=== PATIENT | female | born 1960 | race Caucasian/White ===

== ENCOUNTER 2020-05-10 17:42 | Observation (INO) | payer BC, OTHER ==
[~2020-05-10] VITALS: Ht 152.4 cm; Wt 54.9 kg
[~2020-05-10 17:42] MED LIST: AMBIEN5 MG PO; CELEBREX200 MG PO; CIPRO500 MG PO; DEXILANT60 MG PO; FLAGYL250 MG PO; LIPITOR20 MG PO; LIPOFEN150 MG PO; METOPROLOL TART25 MG PO; PREMARIN0.625 MG PO; VITAMIN D10000 UNIT PO
--- OUTSIDE RECORDS SUMMARY | 2020-05-10 17:45 | XMS REPORT | Continuity of Care Document ---
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 Role Phone Down Information Indigoz Unavailable Un available Problems Problem Status Onset Date Classification Date Reported Comments Source NEW PT CONSULT - GASTROPARESIS Active 02/02/2019 [facility] Inflammatory arthritis Active Problem 08/22/2018 Elan Haines TALHA positive Active Problem 08/22/2018 Elan Haines Hand pain Active Diagnosis 06/25/2018 Elan Haines Wrist pain, right Active Diagnosis 06/25/2018 Elan Haines Hand pain, right Active Diagnosis 06/25/2018 Elan Haines Shoulder pain, right Active Diagnosis 06/25/2018 Elan Haines Wrist pain, left Active Diagnosis 06/25/2018 Elan Haines Shoulder pain, left Active Diagnosis 06/25/2018 Elan Haines Foot pain, right Active Diagnosis 06/25/2018 Elan Haines Knee pain, right Active Diagnosis 06/25/2018 Elan Haines Hip pain, right Active Diagnosis 06/25/2018 Elan Haines Foot pain, left Active Diagnosis 06/25/2018 Elan Haines Hip pain, left Active Diagnosis 06/25/2018 Elan Haines Knee pain, left Active Diagnosis 06/25/2018 Elan Haines Hand pain, left Active Diagnosis 06/25/2018 Elan Haines Family history of ischemic heart disease Active Diagnosis 08/16/2015 Mohamed O Jeroudi Chest pain Active Problem 08/16/2015 Mohamed O Jeroudi Hyperglyceridemia Active Problem 08/16/2015 Mohamed O Jeroudi Heart palpitations Active Problem 08/16/2015 Mohamed O Jeroudi Medications Medication Details Route Status Patient Instructions Ordering Provider Order Date Source Estradiol 0.5 MG Oral Tablet [Estrace] 0.5 mg = 1 tab, PO, Daily, # 30 tab, 0 Refill(s) Active 03/16/2019 [facility] nt gabapentin 300 MG Oral Capsule 300 mg = 1 cap, PO, TID, # 270 cap, 0 Refill(s) Active 03/16/2019 [facility] dexlansoprazole 60 MG Enteric Coated Capsule [Dexilant ] 60 mg = 1 cap, PO, Daily, # 30 cap, 1 Refill(s) Active 03/16/2019 [facility] nter zolpidem 10 mg oral tablet 10 mg = 1 tab, PO, Bedtime, # 14 tab, 0 Refill(s) Active 03/16/2019 [facility] Fenofibrate PO, Daily, 0 Refil l(s) Active 03/16/2019 [facility] rifaMPIN 300 mg oral capsule 6 00 mg = 2 cap, PO, Daily, # 28 cap, 0 Refill(s) Active 03/16/2019 [facility] celecoxib 100 mg oral capsule 100 mg = 1 cap, PO, BID, # 180 cap, 0 Refill(s) Active 03/16/2019 [facility] minocycline 100 mg oral capsule 100 mg = 1 cap, PO, Q12H, # 60 cap, 0 Refill(s) Active 03/16/2019 [facility] nter Probiotic Formula oral capsule 1 cap, PO, Daily, 0 Refill(s) Active 03/16/2019 [facility] Hydroxychloroquine Sulfate 1 t ablet with food or milk Orally Active 200 MG Orally bid wm Gregg 06/22/2018 Elan Haines Fenofibrate 1 capsule with food Orally Active 150 MG Orally Once a day Gregg Elan Haines Celecoxib 1 capsule with food Orally Active 200 MG Orally Once a day Gregg Elan Haines Dexilant 1 capsule Orally Active 60 MG Orally Once a day Gregg Hieu Haines Progesterone 1 capsule at bedt samantha Orally Active 200 MG Orally Once a day Gregg Elan Haines Balance D as directed NA Active Yous af Elan Haines Ambien CR 1 tablet at bedtime as needed Orally Active 12.5 MG Orally Once a day Gregg Elan Haines DHEA 50 as directed Orally Active 50 MG Orally Gregg Hieu Haines CardioDaily as directed Orally Active - Orally Gregg Hieu Haines Celebrex 1 capsule Orally Active 200 MG Orally Once a da y Isidro Felix Metoprolol Tartrate 1/2 half t ablet Orally Active 25 MG Orally Twice a day Isidro Felix Premarin 1 tablet Orally Active 0.625 MG Orally Once a day Jerjennifer Larry Deejennifer Vitamin D 1 tablet Orally Active 1000 UNIT Orally Once a day Jerjennifer Larry Alatorre Isidro Lipofen 1 capsule Orally Active 150 MG Orally once a da y Jerjennifer Larry Celi Felix Dexilant 1 capsule Orally Active 60 MG Orally Once a day Jertimmyarianna Larry Celi Felix Allergies, Adverse Reactions, Alerts Substance Category Reaction Severity Reaction type Status Date Reported Comments Source PredniSONE Adverse Reaction Info Not Available Adverse Reactio n Active 08/15/2014 Teeamed Celi Deejennifer latex Adverse Reaction Info Not Available Adverse Reaction Active 06/22/2018 Elan Haines steroids Adverse Reaction Info Not Available Adverse Reaction Active 06/22/2018 Elan Leivaer Latex Assertion Allergy to substance Active [facility] predniSONE Assertion Drug allergy Active [facility] Immunizations No Data Provided for This Section Results No Data Provided for This Section Pathology Reports No Data Provided for This Section Diagnostic Reports No Data Provided for This Section Consultation Notes No Data Provided for This Section Discharge Summaries No Data Provided for This Section History and Physicals No Data Provided for This Section Vital Signs Vital Sign Value Date Comments Source Height 152.4 cm 03/16/2019 [facility] Weight 54.602 03/16/2019 [facility] BMI Calculated 23.51 03/16/2019 [facility] Systolic (mm Hg) 121 03/16/2019 [facility] Diastolic (mm Hg) 71 03/16/2019 [facility] Heart Rate 67 03/16/2019 [facility] Weight 134 06/22/2018 Elan Haines Height 59.5 06/22/2018 Elan Haines Temperature Oral (F) 97.6 F 06/22/2018 Elan Haines Heart Rate 64 06/22/2018 Elan Haines Diastolic (mm Hg) 78 06/22/2018 Elan Haines Systolic (mm Hg) 104 06/22/2018 Elan Haines Weight 142 08/15/2014 Larry Felix Height 60 1 10/15/2013 Larry Yehdi Temperature Oral (F) 96.6 F 08/15/2014 Larry Felix Heart Rate 69 08/15/2014 Larry Felix Diastolic (mm Hg) 65 08/15/2014 Larry Felix Systolic (mm Hg) 115 08/15/2014 Larry Felix Encounters Location Location Details Encounter Type Encounter Number Reason For Visit Attending Provider ADM Date DC Date Status Source Larry Felix MD PA Unknown [id number] 08/15/20 14 08/15/2014 Larry Felix [facility] [id number] Robbin Milner 03/16/2019 03/17/2019 [facility] Procedures No Data Provided for This Section Assessment and Plan No Data Provided for This Section Plan of Care No Data Provided for This Section Social History Social History Date Source Social History TypeResponse Alcohol Current, Type Wine. Smoking Status Never smoker; Previous treatment: None; Ready to change: No; Concerns about tobacco use in household: No; Exposure to Tobacco Smoke None; Cigarette Smoking Last 365 Days No; Reg Smoking Cessation Counseling No entered on: 03/16/19 03/16/2019 [facility] Social History ElementQualifiersDate Rep orted Smoking . Status Never Smoker Aug 14, 2015 Alcohol Use No. Aug 14, 2015 Alcohol Screening: No. Aug 14, 2015 Marital Status: . Aug 14, 2015 Do you drink alcohol? No. 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 08/14/2015 Larry Felix Family History Value Date S ource QualifierDescriptionCommentDate Reported Maternal Grandmother Comment not available Aug 14, 2015 Paternal Grandmother Comment not available Aug 14, 2015 Siblings Comment not available Aug 14, 2015 Maternal Grandfather Comment not available Aug 14, 2015 Children Comment not available Aug 14, 2015 Father CHF Aug 14, 2015 Paternal Grandfather Comment not available Aug 14, 2015 Mother alive Possible Ablation Aug 14, 2015 Other: Comment not available Aug 14, 2015 08/16/2015 Larry Felix Advance Directives No Data Provided for This Section Functional Status No Data Provided for This Section
--- OUTSIDE RECORDS SUMMARY | 2020-05-10 17:45 | XMS REPORT ---
Author Author CAIT Haines Organization [employer] Address Unknown Phone Unavailable Care Team Providers Care Tire Service Technician Name Role Phone Matteo Haines CP Unavailable Allergies No Known Allergies Problems Problem Type Condition Code Onset Dates Condition Statu s Problem Inflammatory arthritis M19.90 Activ e Problem TALHA positive R76.8 Active Medications No Known Medications Results No Known Results Summary Purpose [employer] Submission
--- OUTSIDE RECORDS SUMMARY | 2020-05-10 17:45 | XMS REPORT | Summary of Care ---
Author Author [facility] Organization [facility] Address Unknown Phone Unavailable Encounter MARY Castle(LITO) [id number] Date(s): 03/16/19 - 03/16/19 [facility] [address] [place] [address] [phone] Discharge Disposition: Home or Self Care Attending Physician: Robbin Milner MD Referring Physician: Robbin Milner MD Vital Signs Most recent to 1 oldest [Reference Range]: Height 152.4 cm (03/16/19 2:12 PM) Blood Pressure 121/71 mmHg [90-140/60-90 mmHg] (03/16/19 2:12 PM) Peripheral Pulse 67 bpm Rate [60-100 bpm] (03/16/19 2:12 PM) Weight 54.602 kg (03/16/19 2:12 PM) Body Mass Index 23.51 m2 (03/16/19 2:12 PM) Problem List No data available for this section Allergies, Adverse Reactions, Alerts Substance Reaction Severity Status predniSONE Active Latex Active Medications celecoxib 100 mg oral capsule 100 mg = 1 cap, PO, BID, # 180 cap, 0 Refill(s) Start Date: 03/16/19 Status: Ordered Dexilant 60 mg oral delayed release capsule 60 mg = 1 cap, PO, Daily, # 30 cap, 1 Refill(s) Start Date: 03/16/19 Status: Ordered Estrace 0.5 mg oral tablet 0.5 mg = 1 tab, PO, Daily, # 30 tab, 0 Refill(s) Start Date: 03/16/19 Status: Ordered fenofibrate PO, Daily, 0 Refill(s) Start Date: 03/16/19 Status: Ordered gabapentin 300 mg oral capsule 300 mg = 1 cap, PO, TID, # 270 cap, 0 Refill(s) Start Date: 03/16/19 Status: Ordered minocycline 100 mg oral capsule 100 mg = 1 cap, PO, Q12H, # 60 cap, 0 Refill(s) Start Date: 03/16/19 Stop Date: 04/15/19 Status: Ordered Probiotic Formula oral capsule 1 cap, PO, Daily, 0 Refill(s) Start Date: 03/16/19 Status: Ordered rifaMPIN 300 mg oral capsule 600 mg = 2 cap, PO, Daily, # 28 cap, 0 Refill(s) Start Date: 03/16/19 Stop Date: 03/30/19 Status: Ordered zolpidem 10 mg oral tablet 10 mg = 1 tab, PO, Bedtime, # 14 tab, 0 Refill(s) Start Date: 03/16/19 Stop Date: 03/30/19 Status: Ordered Results No data available for this section Immunizations No data available for this section Procedures No data available for this section Social History Social History Type Response Alcohol Current, Type Wine. Smoking Status Never smoker; Previous baylee tment: None; Ready to change: No; Concerns about tobacco use in household: No; Exposure to Tobacco Smoke None; Cigarette Smoking Last 365 Days No; Reg Smoking C essation Counseling No entered on: 03/16/19 Assessment and Plan No data available for this section
--- OUTSIDE RECORDS SUMMARY | 2020-05-10 17:45 | XMS REPORT ---
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 Name Role Phone Larry Felix CP Unavailable Allergies, Adverse Reactions, Alerts Substance Reaction Event Type Latex Info Not Available Drug Allergy PredniSONE Info Not Available Drug Allergy Encounters Encounter Location Date Unknown Larry Felix MD PA Aug 15, 2014 Problems Problem Type Condition ICD-9 Code Onset Dates Condition Statu s Assessment Family history of ischemic heart disease V17.3 Active Problem Chest pain 786.50 Active Problem Hyperglyceridemia 272.1 Active Problem Heart palpitations 785.1 Active Assessment Chest pain 786.50 Active Assessment Hyperglyceridemia 272.1 Active Problem Family history of ischemic heart disease V17.3 Active Assessment Heart palpitations 785.1 Active Medications Medication Code System Code Instructions Start Date End Date Status Dosage Celebrex [facility] [address]-10 200 MG Orally Once a day Active [address] [facility] [address]-94 25 MG Orally Twice a day Active 1/[address] [facility] [address]-83 0.625 MG Orally Once a day Active [address] [facility] [address]-76 1000 UNIT Orally Once a day Active [address] [facility] [address]-68 150 MG Orally once a day Active [address] [facility] [address]-06 60 MG Orally Once a day Active 1 capsule Social History Social History Element Qualifiers Date Reported Smoking . Status Never Smoker Aug 14, 2015 Alcohol Use No. Aug 14, 2015 Alcohol Screening: No. Aug 14, 2015 Marital Status: . Aug 14, 2015 Do you drink alcohol? No. 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 Family history Qualifier Description Comment Date Reported Maternal Grandmother Comment not available Jul 242014 Paternal Grandmother Comment not available Jul 242014 Siblings Comment not available Nov 23, 20 15 Maternal Grandfather Comment not available Jul 242014 Children Comment not available Aug 14 Father CHF Aug 14, 2015 Paternal Grandfather Comment not available Jul 242014 Mother alive Possible Ablation Aug 14, 2015 Other: Comment not available Aug 14 15 Vital Signs Date/Time: Aug 15, 2014 Weight 142 lbs Height 60 in Temperature 96.6 F Cardiac Monitoring Heart Rate 69 /min Blood Pressure Diastolic 65 mm Hg Blood Pressure Systolic 115 mm Hg Summary Purpose [employer] Submission
--- OUTSIDE RECORDS SUMMARY | 2020-05-10 17:45 | XMS REPORT ---
Author [facility] [employer] Address Unknown Phone Unavailable Care Team Providers Care Biological Photographer Name Role Phone Jose Escobedo CP Unavailable Allergies, Adverse Reactions, Alerts Substance Reaction Event Type latex Info Not Available Non Drug Allergy steroids Info Not Available Non Drug Allergy Problems Problem Type Condition Code Onset Dates Condition Statu s Assessment Hand pain M79.643 Active Assessment Wrist pain, right M25.531 Active Assessment Hand pain, right M79.641 Active Problem Inflammatory arthritis M19.90 Activ e Assessment Inflammatory arthritis M19.90 Activ e Problem TALHA positive R76.8 Active Assessment Shoulder pain, right M25.511 Active Assessment Wrist pain, left M25.532 Active Assessment TALHA positive R76.8 Active Assessment Shoulder pain, left M25.512 Active Assessment Foot pain, right M79.671 Active Assessment Knee pain, right M25.561 Active Assessment Hip pain, right M25.551 Active Assessment Foot pain, left M79.672 Active Assessment Hip pain, left M25.552 Active Assessment Knee pain, left M25.562 Active Assessment Hand pain, left M79.642 Active Medications Medication Code System Code Instructions Start Date End Date Status Dosage Fenofibrate [facility] 39453946571 150 MG Orally Once a day Active 1 capsule with food Celecoxib ND 44929143809 200 MG Orally Once a day A ctive 1 capsule with food Dexilant [facility] 81934407002 60 MG Orally Once a day Act conchis 1 capsule Progesterone [facility] [address]-35 200 MG Orally Once a day Active 1 capsule at bedtime Balance D NDC 0 Active as directed Ambien CR ND 38442875732 12.5 MG Orally Once a day Active 1 tablet at bedtime as needed DHEA 50 ND 91415869108 50 MG Orally Active as dir ected Hydroxychloroquine Sulfate ND 75665368917 200 MG Orally bid w m Jun 22, 2018 Oct 20, 2018 Active 1 tablet with food or milk CardioDaily NDC 0 - Orally Active as directe d Vital Signs Date/Time: Jun 22, 2018 BMI 26.61 Index Weight 134 lbs Height 59.5 in Temperature 97.6 F Cardiac Monitoring Heart Rate 64 /min Blood Pressure Diastolic 78 mm Hg Blood Pressure Systolic 104 mm Hg Results No Known Results Summary Purpose [employer] Submission
--- OUTSIDE RECORDS SUMMARY | 2020-05-10 17:45 | XMS REPORT | Continuity of Care Document ---
Author Author [facility] t Organization [facility] Address 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 Name Role Phone Vicente RIVERA MD PCP [facility] Attphys Payers Payer Name Policy Type Policy Number Effective Date Expiration Date kimberly [facility] [id number] 2017 00:00:00 [facility] Problems Condition Name Condition Details Condition Category Status Onset Date Resolution Date Last Treatment Date Treating Clinician Comments Source NEW PT CONSULT - GASTROPARESIS NEW PT CONSULT - GASTROPARESIS Active 02/02/2019 [facility] Diagnosis Activ e 2019-02-02 00:00:00 2019-03-16 14:14:00 Raza Phipps Anemia Anemia Disease Active 2017-04-02 00:00:00 Kleber King Diverticulitis of colon Diverticulitis of colon Disease Active 2017-03-28 00:00:[address] Chest pain Chest pain Problem Active 2014-07-13 00:00:00 [facility] Diverticulitis of intestine Diverticulitis Problem Active [facility] Failure of outpatient treatment Failure of outpatient treatment Pro blem Active [facility] Inflammatory arthritis Infl ammatory arthritis Active Problem 08/22/2018 Elan Haines Problem Active 2018-08-22 03 :45:05 [facility] TALHA positive TALHA positive Active Problem 08/22/2018 Elan Haines Problem Active 2018-08-22 03:45:05 [facility] Hand pain Hand pain Active Diagnosis 06/25/2018 Elan Haines Diagnosis Active 2018-06-25 02:46:43 [facility] Wrist pain, right Wris t pain, right Active Diagnosis 06/25/2018 Elan Haines Diagnosis Active 2018-06-25 02:46:43 [facility] Hand pain, right Hand pain, right Active Diagnosis 06/25/2018 Elan Haines Diagnosis Active 2018-06-25 02:46:43 [facility] Shoulder pain, right Shou lder pain, right Active Diagnosis 06/25/2018 Elan Haines Diagnosis Active 2018-06-25 02:46:43 [facility] Wrist pain, left Wris t pain, left Active Diagnosis 06/25/2018 Elan Haines Diagnosis Active 2018-06-25 02:46:43 [facility] Shoulder pain, left Shou lder pain, left Active Diagnosis 06/25/2018 Elan Haines Diagnosis Active 2018-06-25 02:46:43 [facility] Foot pain, right Foot pain, right Active Diagnosis 06/25/2018 Elan Haines Diagnosis Active 2018-06-25 02:46:43 [facility] Knee pain, right Knee pain, right Active Diagnosis 06/25/2018 Elan Haines Diagnosis Active 2018-06-25 02:46:43 [facility] Hip pain, right Hip pain, right Active Diagnosis 06/25/2018 Elan Haines Diagnosis Active 2018-06-25 02:46:43 [facility] Foot pain, left Foot pain, left Active Diagnosis 06/25/2018 Elan Haines Diagnosis Active 2018-06-25 02:46:43 [facility] Hip pain, left Hip pain, left Active Diagnosis 06/25/2018 Elan Haines Diagnosis Active 2018-06-25 02:46:43 [facility] Knee pain, left Knee pain, left Active Diagnosis 06/25/2018 Elan Haines Diagnosis Active 2018-06-25 02:46:43 [facility] Hand pain, left Hand pain, left Active Diagnosis 06/25/2018 Elan Haines Diagnosis Active 2018-06-25 02:46:43 [facility] Family history of ischemic heart disease Family history of ischemic heart disease Active Diagnosis 08/16/2015 Larry Felix Diagnosis Active 2015-08-16 03:49:46 Usman Phipps Chest pain Ches t pain Active Problem 08/16/2015 Larry Felix Problem Active 2015-08-16 03:49:46 Ginger Phipps Hyperglyceridemia Hype rglyceridemia Active Problem 08/16/2015 Larry Felix Problem Active 2015-08-16 03:49:46 Ginger Phipps Heart palpitations Hear t palpitations Active Problem 08/16/2015 Larry Felix Problem Active 2015-08-16 03:49:46 Ginger Phipps Allergies, Adverse Reactions, Alerts Allergy Name Allergy Type Status Severity Reaction(s) Onset Date Inacti ve Date Treating Clinician Comments Source Latex Allergy to Substance Active 2019-09-22 00:00:00 [facility] steroids steroids Active Info Not Available 2018-06-22 00:00:00 Ginger Phipps Latex Propensity to adverse reactions to drug Active 2017-02-10 00:00:00 Kleber King Prednisone Propensity to adverse reactions to drug Active Hypertension 2017-02-10 00:00:00 rash [place] [facility] PredniSONE PredniSONE Active Info Not Available 2014-08-15 00:00:0 0 Ginger Phipps latex DA Active SV 2012-06-25 00:00:00 [facility] STEROIDS DA Active MO 2012-06-25 00:00:00 [facility] Latex Latex Active [facility] jamal predniSONE predniSONE Active Me [facility] Family History Family Member Diagnosis Comments Start Date Stop Date Source Natural father Heart disease Kleber King Natural mother COPD [facility] thodist Unknown Family Member Family History 2015-08-16 03:49:46 2 03:49:46 Ginger Phipps Social History Social Habit Start Date Stop Date Quantity Comments Source Sex Assigned At Kaur raines Fernando Social History 2019-03-16 19:17:50 2019-03-16 19:17:50 Ginger Phipps Alcohol intake 2018-04-01 00:00:00 2018-04-01 00:00:00 Current non-drinker of alcohol (finding) Kleber King Smoking 2015-08-14 00:00:00 2015-08-14 00:00:00 Ginger Phipps Smoking Status Start Date Stop Date Source Never smoker Kleber Mais t Medications Ordered Medication Name Filled Medication Name Start Date Stop Da te Current Medication? Ordering Clinician Indication Dosage Frequency Signature (SIG) Comments Components Source Estradiol 0.5 MG Oral Tablet [Estrace] 2019-03-16 19:18:00 Yes 0.5 mg = 1 tab, PO, Daily, # 30 tab, 0 [facility] Oral Capsule 2019-03-16 19:18:00 Yes 300 mg = 1 cap, PO, TID, # 270 cap, 0 Refill(s) [facility] [place] [place] dexlansoprazole 60 MG Enteric Coated Capsule [Dexilant] 2019-03-16 19:18:00 Yes 60 mg = 1 cap, PO, Daily, # 30 cap, 1 Re fill(s) [facility] zolpidem 10 mg oral tablet 2019-03-16 19:18:00 Yes 10 mg = 1 tab, PO, Bedtime, # 14 tab, 0 Refill(s) Usman Phipps Fenofibrate 2019-03-16 19:18:00 Yes PO, Toney y, 0 Refill(s) [facility] rifaMPIN 300 mg oral capsule 2019-03-16 19:18:00 Yes 600 mg = 2 cap, PO, Daily, # 28 cap, 0 Refill(s) Andrea Ragland celecoxib 100 mg oral capsule 2019-03-16 19:18:00 Yes 100 mg = 1 cap, PO, BID, # 180 cap, 0 Refill(s) [facility] [place] minocycline 100 mg oral capsule 2019-03-16 19:18:00 Yes 100 mg = 1 cap, PO, Q12H, # 60 cap, 0 Refill(s) [facility] Probiotic Formula oral capsule 2019-03-16 19:18:00 Yes 1 cap, PO, Daily, 0 Refill(s) [facility] Fenofibrate 2018-06-25 02:46:43 Yes Wajeeha Gregg 1 capsule with food [facility] Celecoxib 2018-06-25 02:46:43 Yes Wajeeha Gregg 1 capsule with food [facility] Dexilant 2018-06-25 02:46:43 Yes Wajeeha Gregg 1 capsule [facility] Progesterone 2018-06-25 02:46:43 Yes Wajeeha Gregg [address] [facility] Balance D 2018-06-25 02:46:43 Yes Wajeeha Gregg as directed [facility] Ambien CR 2018-06-25 02:46:43 Yes Wajeeha Gregg 1 tablet at bedtime as needed [facility] DHEA 50 2018-06-25 02:46:43 Yes Wajeeha Gregg as directed [facility] CardioDaily 2018-06-25 02:46:43 Yes Wajeeha Gregg as directed [facility] Hydroxychloroquine Sulfate 2018-06-22 00:00:00 Yes Myleslee johnson Gregg 1 tablet with food or milk [facility] n dexlansoprazole (DEXILANT) 60 mg capsule 2018-03-30 16:18:35 Yes 60mg QD Take 60 mg by mouth nightly. Emmanuel King multivitamin with minerals tablet 2018-03-30 16:18:35 Yes 1{tbl} QD Take 1 tablet by mouth daily. Kleber franklin estrogens, conjugated, (PREMARIN) 0.625 MG tablet 2018-03-30 16:18:35 Yes .625mg QD Take 0.625 mg by mouth nightly. Kleber King zolpidem (AMBIEN) 5 MG tablet 2018-03-30 16:18:35 Yes 5mg QD Take 5 mg by mouth nightly. Kleber King acetaminophen (TYLENOL) 500 MG tablet 2018-03-30 16:18:35 Y es 500mg Q6H Take 500 mg by mouth every 6 (six) hours as needed for mild pain. Kleber King Celebrex 2015-08-16 03:49:46 Yes Larry Felix [address] [facility] Metoprolol Tartrate 2015-08-16 03:49:46 Yes Larry Jerez radha 1/[address] [facility] Premarin 2015-08-16 03:49:46 Yes Larry Deeoudi [address] [facility] Vitamin D 2015-08-16 03:49:46 Yes Larry Deeoudi [address] [facility] Lipofen 2015-08-16 03:49:46 Yes Larry Deeoudi [address] [facility] Dexilant 2015-08-16 03:49:46 Yes Larry Deeoudi [address] [facility] Celecoxib (Celebrex) 200 Mg Capsule Celecoxib (Celebrex) 200 Mg Capsu le Yes 200 Twice A Day [facility] Ciprofloxacin Hcl (Cipro) 500 Mg Tablet Ciprofloxacin Hcl (C ipro) 500 Mg Tablet Yes 500 Every 12 Hours [facility] Dexlansoprazole (Dexilant) 60 Mg Cap. Dexlansopra zole (Dexilant) 60 Mg Cap. Yes 60 Daily [facility] Estrogens Conjugated (Premarin) 0.625 Mg Tab Estrogens Conjugated (Premarin) 0.625 Mg Tab Yes .625 Daily [facility] Fenofibrate (Lipofen) 150 Mg Capsule Fenofibrate (Lipofen) 150 Mg C apsule Yes 150 Daily [facility] Metronidazole (Flagyl) 250 Mg Tablet Metronidazole (Flagyl) 250 Mg Tablet Yes 250 Twice A Day [facility] Zolpidem Tartrate (Ambien) 5 Mg Tablet Zolpidem Tartrate (Ambien ) 5 Mg Tablet Yes 5 Bedtime as needed for Sleep [facility] Atorvastatin Calcium (Lipitor) 20 Mg Tablet, 20 Mg Ora l Atorvastatin Calcium (Lipitor) 20 Mg Tablet, 20 Mg Oral 2016-12-10 00:00:00 No 2 0 Daily [facility] Cholecalciferol (Vitamin D3) (Vitamin D) 10,000 Unit C apsule, 31806 Unit Oral Cholecalciferol (Vitamin D3) (Vitamin D) 10,000 Unit Capsule, 30749 Unit Oral 2016-12-10 00:00:00 [place] [id number] Weekly [facility] Metoprolol Tartrate 25 Mg Tablet, 12.5 Mg Oral Metopro lol Tartrate 25 Mg Tablet, 12.5 Mg Oral 2016-12-10 00:00:00 No 12.5 Twice A Da y [facility] Vital Signs Vital Name Observation Time Observation Value Comments Source Height 2019-03-16 19:12:00 152.4 cm Ginger Phipps Weight 2019-03-16 19:12:00 [facility] BMI Calculated 2019-03-16 19:12:00 Andrea Ragland Systolic (mm Hg) 2019-03-16 19:12:00 [facility] [facility] [place] Diastolic (mm Hg) 2019-03-16 19:12:00 Mem [facility] [place] Heart Rate 2019-03-16 19:12:00 [facility] [place] Weight 2018-06-22 14:15:00 [facility] Height 2018-06-22 14:15:00 [facility] Temperature Oral (F) 2018-06-22 14:15:00 97.6 F [facility] [place] Heart Rate 2018-06-22 14:15:00 [facility] Diastolic (mm Hg) 2018-06-22 14:15:00 [facility] Systolic (mm Hg) 2018-06-22 14:15:00 [facility] [place] Weight 2014-08-15 20:30:00 [facility] Height 2014-08-15 20:30:00 [facility] Temperature Oral (F) 2014-08-15 20:30:00 96.6 F [facility] Heart Rate 2014-08-15 20:30:00 [facility] [place] Diastolic (mm Hg) 2014-08-15 20:30:00 [facility] Systolic (mm Hg) 2014-08-15 20:30:00 Nicholas [facility] Procedures This patient has no known procedures. Plan of Care Planned Activity Planned Date Details Comments Source Future Scheduled Test 2020-05-23 00:00:00 INFLUENZA VACCINE [code = INFLUENZA VACCINE] [facility] Scheduled Test 2012 00:00:00 BREAST CANCER SCRE ENING [code = BREAST CANCER SCREENING] [facility] Scheduled Test 2012 00:00:00 COLONOSCOPY SCREEN ING [code = COLONOSCOPY SCREENING] [facility] Scheduled Test 2012 00:00:00 SHINGLES VACCINES (#1) [code = SHINGLES VACCINES (#1)] [facility] Scheduled Test 1983 00:00:00 Screening for mayra gnant neoplasm of cervix (procedure) [code = 642374839] [facility] Encounters Start Date/Time End Date/Time Encounter Type Admission Type [facility] Care Department Encounter ID Source 2019-09-22 17:45:00 2019-09-22 18:52:00 Departed Emergency Room [facility] [id number] [facility] 2019-03-16 14:06:00 2019-03-16 23:59:00 Outpatient Robbin Milner [facility] [id number] 2019-03-16 14:06:00 2019-03-16 14:06:00 Outpatient [facility] [id number] [facility] 2018-08-21 08:04:00 2018-08-21 08:04:00 Outpatient Matteo Haines MD [place] [id number] Elan Haines MD 2018-06-22 09:15:00 2018-06-22 09:15:00 Outpatient Matteo Haines MD [place] [id number] Elan Haines MD 2014-08-15 14:30:00 2014-08-15 14:30:00 [place] [id number] [employer] Results This patient has no known results.
--- OUTSIDE RECORDS SUMMARY | 2020-05-10 17:45 | XMS REPORT | Clinical Summary ---
Author Author [facility] Address Unknown Phone Unavailable Care Team Providers Care Fabrication Supervisor Name Role Phone Alden Moon MD PCP Allergies Comments Active Allergy Reactions Severity Noted Date Latex 02/10/2017 rash Prednisone Hypertension 02/10/2017 Medications End Date Status Medication Sig Dispensed Refills Start Date Active dexlansoprazole Take 60 mg by 0 (DEXILANT) 60 mg capsule mouth nightly. Active multivitamin with Take 1 tablet 0 minerals tablet by mouth daily. Active estrogens, conjugated, Take 0.625 mg 0 (PREMARIN) 0.625 MG by mouth tablet nightly. Active zolpidem (AMBIEN) 5 MG Take 5 mg by 0 tablet mouth nightly. Active acetaminophen (TYLENOL) Take 500 mg 0 500 MG tablet by mouth every 6 (six) hours as needed for mild pain. Active Problems Problem Noted Date Anemia 04/02/2017 Diverticulitis of colon 03/28/2017 Family History Medical History Relation Name Comments Heart disease Father liver disease COPD Mother Relation Name Status Comments Father liver disease Mother Social History Date Tobacco Use Types Packs/Day Years Used Never Smoker Smokeless Tobacco: Never Used Drinks/Week oz/Week Comments Alcohol Use No Sex Assigned at Date Recorded Not on file Industry Job Start Date Occupation Not on file Not on file Not on file Travel End Travel History Travel Start No recent travel history available. Last Filed Vital Signs Not on file Plan of Treatment Health Maintenance Due Date Last Done Comments CERVICAL CANCER SCREENING 1983 BREAST CANCER SCREENING 2012 COLONOSCOPY SCREENING 2012 SHINGLES VACCINES (#1) 2012 INFLUENZA VACCINE 05/23/2020 Implants Device Identifier Shelf Expiration Date Model / Serial / L ot Implanted Type Area Manufactur er 09/25/2021 APS 5616 / / [id number] Allograft Amniofix Membrane Human N/A: N/A [employer] Amniotic 6 X 16cm - [id number] Tissue GROUP IN C Implanted: Qty: 1 on 03/28/2017 by Implants Eric Scanlon MD at [facility] 09/24/2020 APS 5616 / / [id number] Allograft Amniofix Membrane Human N/A: N/A [employer] Amniotic 6 X 16cm - [id number] Tissue GROUP IN C Implanted: Qty: 1 on 03/28/2017 by Implants Eric Scanlon MD at [facility] [id number] / / Drain Wound Hbls Round Radopaq Surgical N/A: N/ A Trocar Azucena White 0.25in 19fr - Implants; [id number] Expanders; Implanted: Qty: 1 on 03/28/2017 by Extenders; Eric Scanlon MD at [facility] Wires Breast Implants Description:breast implants Results Not on fileafter 05/10/2019 Insurance Type Payer Benefit Subscriber ID Effective Phone Address Plan / Dates Group PPO BCBS BCBS xxxxxxxxxxxx 2017-[id number] CHOICE resent PPO/JAMAAL JAMES PPO Advance Directives For more information, please contact: [phone] 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
[2020-05-10 18:17] VITALS: BP 154/71
[2020-05-10 18:40] LABS: BASOPHILS # (AUTO) 0.1 (0.0-0.1); BASOPHILS % 0.7 % (0.0-1.0); EOSINOPHILS # (AUTO) 0.2 (0.0-0.4); EOSINOPHILS % 2.5 % (0.0-6.0); HEMATOCRIT 35.5 % (34.2-44.1); HEMOGLOBIN 11.7 g/dL (12.0-16.0); LYMPHOCYTES # (AUTO) 2.3 (1.0-3.2); LYMPHOCYTES % 31.6 % (18.0-39.1); MEAN CORPUSCULAR HEMOGLOBIN 30.5 pg (28-32); MEAN CORPUSCULAR VOLUME 92.7 fL (81-99); MONOCYTES # (AUTO) 0.6 (0.2-0.8); MONOCYTES % 7.5 % (4.4-11.3); NEUTROPHILS # (AUTO) 4.2 (2.1-6.9); NEUTROPHILS % 57.4 % (38.7-80.0); PLATELET COUNT 266 x10e3/uL (140-360); RED BLOOD COUNT 3.83 x10e6/uL (3.6-5.1); RED CELL DISTRIBUTION WIDTH 12.6 % (11.7-14.4)
[2020-05-10 19:02] LABS: ALANINE AMINOTRANSFERASE 10 IU/L (0-55); ALBUMIN 3.8 g/dL (3.5-5.0); ALBUMIN/GLOBULIN RATIO 1.3 (0.8-2.0); ALKALINE PHOSPHATASE 42 IU/L (40-150); ANION GAP 12.8 mmol/L (8-16); BLOOD UREA NITROGEN 10 mg/dL (7-26); BUN/CREATININE RATIO 12 (6-25); CALCIUM 9.5 mg/dL (8.4-10.2); CARBON DIOXIDE 26 mmol/L (22-29); CHLORIDE 106 mmol/L (98-107); CREATININE, SERUM 0.82 mg/dL (0.57-1.11); EST GLOMERULAR FILTRATION RATE > 60 ML/MIN (60-); GLUCOSE 92 mg/dL (74-118); POTASSIUM 3.8 mmol/L (3.5-5.1); SODIUM 141 mmol/L (136-145)
--- NOTE | 2020-05-10 19:13 | NUR ---
Patient came to the unit at 1805 as a direct admit from Dr. Moon. Patient had orders that were put in. Dr. Moon notified and Dr. Johnson was consulted. Dr. Johnson called back and ordered for a informed consent as patient will have a lap shantanu at 0800 on 05/11 tomorrow morning. Patient is aware and report was given to shift supervisor film processing. Patient has call salazar within reach and no issues or complaints. Bed in lowest position. Patient did have a new IV start in her left hand 20g. Will have NS fluids running at 75 ml/hr
[2020-05-10] MEDS: SODIUM CHLORIDE 0.9% 1000ML 1,000 ML IV SCH (19:15)
[2020-05-10] MEDS ORDERED: ESTRADIOL0.5 MG (19:29)
[2020-05-10] MEDS ORDERED: BIOTIN1000 MCG (19:29)
[2020-05-10] MEDS ORDERED: PROBIOTIC & AC1 EACH (19:29)
[2020-05-10] MEDS ORDERED: GABAPENTIN100 MG PO (19:29)
[2020-05-10 19:30] VITALS: BP 137/74
[2020-05-10 20:00] VITALS: BP 137/74
--- NOTE | 2020-05-10 23:11 | NUR ---
CALLED MD RIVERA. AWAITING CALL BACK.
[2020-05-11] VITALS (9 sets, daily range): BP systolic 113–137; BP diastolic 51–84
--- NOTE | 2020-05-11 07:14 | NUR ---
REPORT GIVEN TO DAYSHIFT NURSE. ALERT AND RESTING IN BED. NO SIGNS IV INFILTRATION. BED LOCKED AND IN LOW POSITION. CALL LIGHT WITHIN REACH.
[2020-05-11] MEDS: SODIUM CHLORIDE 0.9% 1000ML 1,000 ML IV SCH (07:20)
--- NOTE | 2020-05-11 07:25 | History and Physical ---
CHIEF COMPLAINT: The patient came in with acute cholecystitis. HISTORY OF PRESENTING ILLNESS: Ms. Love Ames with a history of longstanding abdominal pain, more epigastric in nature and then was also radiating to the right side. The patient continues to have some nausea, which is intractable and no vomiting, but continues to have abdominal pain on eating. The patient underwent an ultrasound, which showed a stone 6 mm in size and the patient is here for laparoscopic cholecystectomy by Dr. Johnson. PAST MEDICAL HISTORY: History of chronic osteoarthritis, history of reflux esophagitis, history of gastroparesis, history of chronic insomnia, and history of postmenopausal symptoms. PAST SURGICAL HISTORY: History of , history of hysterectomy, surgeries in the shoulder. Additional medical history includes hypertension and history of diverticulitis. The patient also had a colectomy for continuous diverticulitis. SOCIAL HISTORY: No EtOH. Social drinker. No smoking. No history of drug abuse either. FAMILY HISTORY: Diabetes mellitus and cardiac disease in father and mother. REVIEW OF SYSTEMS: Negative for chest pain. No shortness of breath. Positive for nausea and vomiting. No diarrhea. No rectal bleeding. No hematochezia. No hematemesis. Positive for constipation. ALLERGIES: THE PATIENT IS ALLERGIC TO LATEX AND PREDNISONE. PHYSICAL EXAMINATION: VITAL SIGNS: Temperature is 97.7, T-max of 98.2, pulse of 59, respirations of 18, blood pressure is 129/59, pulse oximetry of 98% on room air. HEENT: Normocephalic, atraumatic. No jaundice or icterus present. CVS: S1 and S2 normal. Regular rate and rhythm. LUNGS: Clear to auscultation bilaterally. ABDOMEN: Tender in the right upper quadrant and also in the epigastrium. EXTREMITIES: No clubbing, no cyanosis, no edema. LABORATORY VALUES: White count is 7.3, hemoglobin 11.7, hematocrit 35.5. Chemistry shows sodium 141, potassium 3.8, BUN of 10, creatinine 0.82. Serology; coronavirus is still pending. IMAGING STUDIES: None done here, but back in 2017, abdominal CT showed no stones or gallbladder at that time in 2017. ASSESSMENT AND PLAN: Ms. Love Ames with: 1. Acute cholecystitis. Plan, scheduled laparoscopic cholecystectomy today with Dr. Johnson. 2. History of chronic constipation and nausea and vomiting, which is intractable. Plan again laparoscopic cholecystectomy. 3. Hypertension. I will hold back on all antihypertensive medications. 4. Chronic insomnia. We will hold back on medications. The patient is to undergo surgery, possible discharge after surgery today if she is able to ambulate and tolerate food. Further recommendation per clinical course. We will continue to monitor the patient. Thank you, Dr. Johnson to assist in surgical intervention. MD KAIN Huizar/CINDYL /[id number]
[2020-05-11] MEDS ORDERED: BUPIVACAINE 0.25%/EPI 30ML SDV INJ ONE (07:55)
--- NOTE | 2020-05-11 08:13 | NUR ---
Patient left for surgery at 0810. Patient handoff was given at 0730 to the OR nurse. Addendum: 05/11/20 at 0917 by Sharri Emerson RN Patient surgery pushed until [address] Johnson overlapping procedures.
--- NOTE | 2020-05-11 09:16 | Consultation ---
DATE OF CONSULTATION: 05/11/2020 CHIEF COMPLAINT: Abdominal pain. HISTORY OF PRESENT ILLNESS: This patient is a 60-year-old female with history of chronic recurrent epigastric and right upper quadrant abdominal pain with nausea, no vomiting. The patient has been found to have gallstones in the gallbladder. Her last episode occurred approximately 24 hours ago with severe pain and anorexia. PAST MEDICAL HISTORY: Positive for GERD, gastroparesis, osteoarthritis. PAST SURGICAL HISTORY: Positive for , hysterectomy, shoulder surgery. ALLERGIES: SHE IS ALLERGIC TO PREDNISONE AND LATEX. SOCIAL HABITS: The patient denies smoking or alcohol use. REVIEW OF SYSTEMS: No chest pain, shortness of breath, cough, or fevers. PHYSICAL EXAMINATION: VITAL SIGNS: Stable, afebrile. She is awake, alert, in moderate discomfort. HEENT: Sclerae are nonicteric. NECK: Supple. LUNGS: Clear. HEART: Regular rate and rhythm. ABDOMEN: Soft with guarding tenderness in the right upper quadrant without rebound tenderness. EXTREMITIES: No cyanosis or edema. LABORATORY DATA: White cell count is 7, hemoglobin 11.7. Creatinine is 0.8. Liver function tests unremarkable. Ultrasound shows stones in the neck of the gallbladder. ASSESSMENT: Cholelithiasis and probable cholecystitis. PLAN: Laparoscopic cholecystectomy. Attendant risks discussed with patient in detail. Jose Enrique Johnson MD DNL/MODL /[id number]
[2020-05-11] MEDS ORDERED: ACETAMINOPHEN 325 MG TAB ONE (10:18)
[2020-05-11] MEDS: ACETAMINOPHEN 325 MG TAB PO PRN ×2 (10:50→20:49)
[2020-05-11] MEDS ORDERED: ACETAMINOPHEN/CODEINE 300MG - 30MG TAB PO PRN (12:45)
[2020-05-11] MEDS ORDERED: MORPHINE SULFATE INJ 4 MG/ML INJ 1ML IV PRN (12:45)
[2020-05-11] MEDS ORDERED: FENTANYL CITRATE/PF 100MCG/2 ML INJ ONE ×2 (13:12→19:10)
--- NOTE | 2020-05-11 13:39 | NUR ---
REPORT RECD FROM PACU EMILIO
[2020-05-11] MEDS ORDERED: ACETAMINOPHEN/CODEINE 300MG - 30MG TAB ONE (13:48)
--- NOTE | 2020-05-11 13:53 | Operative Report ---
DATE OF PROCEDURE: 05/11/2020 SURGEON: Jose Enrique Johnson MD PREOPERATIVE DIAGNOSIS: Cholecystitis. POSTOPERATIVE DIAGNOSIS: Cholecystitis. OPERATIVE PROCEDURE: Laparoscopic cholecystectomy. ANESTHESIA: General. INDICATION: The patient is a 60-year-old female with chronic intermittent abdominal pain in epigastrium with ultrasound showing gallstones. She consented for laparoscopic cholecystectomy. Attendant risks have been discussed. PROCEDURE FINDINGS: Chronic cholecystitis and cholelithiasis. DESCRIPTION OF PROCEDURE: The patient was brought to the OR and intubated. The abdomen was then prepped and draped in sterile fashion. Infraumbilical incision was made and a 10 mm port inserted. Insufflation then began. Under direct vision, other port sites placed in the midepigastric and right upper quadrant. Gallbladder chronically inflamed and distended. Fundus retracted in cephalad direction. Next, the gallbladder was retracted laterally with blunt dissection. Cystic artery was isolated, triple clipped and divided. Cystic duct also isolated and the junction with common bile duct was noted before triple clipping the cystic duct and divided between clips. The gallbladder detached from the liver with cautery and taken out through umbilical port site. Operative field was then irrigated. Hemostasis achieved. Ports removed under direct vision. Fascia closed with 0 Vicryl. Skin was closed with subcuticular stitch. The patient was extubated and transported to recovery room. BLOOD LOSS: 4 mL. Jose Enrique Johnson MD DNL/MODL /[id number]
--- NOTE | 2020-05-11 19:00 | NUR ---
Resumed care of patient. Patient awake and resting in bed, no s/s of distress at this time. Bed locked and in lowest position, side rails upx3, call light placed within reach. All safety measures in place.
[2020-05-11] MEDS ORDERED: MIDAZOLAM HCL 2 MG/2 ML VIAL ONE (19:10)
[2020-05-11] MEDS ORDERED: DEXAMETHASONE SOD PHOS INJ 4 MG/ML VIAL ONE (19:42)
[2020-05-11] MEDS ORDERED: SEVOFLURANE INHAL SOLN 250 ML PEN BTL ONE (19:42)
[2020-05-11] MEDS ORDERED: CEFOXITIN SOD 1 GM VIAL ONE (19:42)
[2020-05-11] MEDS ORDERED: LIDOCAINE HCL 2% LOCAL INJ 5 ML SDV VIAL INJ ONE (19:42)
[2020-05-11] MEDS ORDERED: KETOROLAC TROMETHAMINE 30 MG/ML VIAL ONE (19:42)
[2020-05-11] MEDS ORDERED: PROPOFOL IV EMULSION 10 MG/ML 20 ML VIAL ONE (19:42)
[2020-05-11] MEDS ORDERED: ROCURONIUM BROMIDE 10 MG/ML 5ML VIAL IV ONE (19:42)
[2020-05-11] MEDS ORDERED: ONDANSETRON HCL INJ 2MG/ML 2ML 2 MG/ML VIAL ONE (19:42)
[2020-05-11] MEDS ORDERED: GLYCOPYRROLATE INJ 0.2 MG/ML VIAL ONE (19:42)
[2020-05-11] MEDS ORDERED: NEOSTIGMINE 1 MG/ML 10ML VIAL ONE (19:42)
[2020-05-12] VITALS: BP 109/60
[2020-05-12 04:00] VITALS: BP 114/54
[2020-05-12] MEDS: SODIUM CHLORIDE 0.9% 1000ML 1,000 ML IV SCH (04:55)
--- NOTE | 2020-05-12 07:00 | NUR ---
Bedside report given to oncoming nurse. Patient awake and resting in bed, no s/s of distress at this time. All safety measures in place.
--- NOTE | 2020-05-12 07:22 | Progress Note ---
DATE: SUBJECTIVE: The patient is a 60-year-old female, who comes in with acute cholelithiasis with abdominal pain, status post laparoscopic cholecystectomy. The patient is doing better, able to tolerate clear liquid diet, advancing to full liquid diet, on no complaints. Afebrile. OBJECTIVE: VITAL SIGNS: Temperature is 97.7, pulse of 51, respirations of 18, blood pressure is 114/54, pulse oximetry 100%. HEENT: Normocephalic and atraumatic. Pupils are reactive to light and accommodation. CVS: S1 and S2 normal. Regular rate and rhythm. LUNGS: Clear to auscultation. ABDOMEN: Trocar sites clean. No signs of bleeds or infection. EXTREMITIES: No clubbing, no cyanosis, no edema. LABORATORY VALUES: None done. ASSESSMENT AND PLAN: Ms. Love Ames with acute cholelithiasis with abdominal pain, intractable, status post laparoscopic cholecystectomy. The patient is doing well, can be discharged home today. Continue and advance diet as tolerated. Further recommendation per clinical course. MD KAIN Huizar/MODL /[id number]
[2020-05-12 08:00] VITALS: BP 126/54
[2020-05-12 08:55] VITALS: BP 126/54
--- NOTE | 2020-05-12 10:22 | NUR ---
Patient discharged Home, Called Dr Johnson , got clearance for Discharge and he said f/up in 1 week. Trochar sites intact, no bleeding or drainage, denies any pain this time, Abdomen Soft, not distended, Discharge instruction given, patient verbalized understanding, IV canula removed with tip intact, No ss of infiltration noted, Transported via wheelchair to [facility], here to pick her. NOT in any distress
== END 2020-05-12 10:35 | disposition home or self-care (01) ==
LOC: INTOOBSV 17:42 → MED/SURG 17:42
PROVIDERS: ADMIT Family Medicine; ATTEND Family Medicine
DX: K80.10 Calculus of gallbladder with chronic cholecystitis without obstruction (principal); M19.90 Unspecified osteoarthritis, unspecified site; K21.0 Gastro-esophageal reflux disease with esophagitis; K31.84 Gastroparesis; Z83.3 Family history of diabetes mellitus; Z82.49 Family history of ischemic heart disease and other diseases of the circulatory system; Z88.8 Allergy status to other drugs, medicaments and biological substances; Z91.040 Latex allergy status; I10 Essential (primary) hypertension; F51.04 Psychophysiologic insomnia; F41.9 Anxiety disorder, unspecified; Z11.59 Encounter for screening for other viral diseases
CPT/HCPCS: 36415; 47562; 80053; 85025; 88304; 96360; 96361; G0378 ×3; J0694; J1100; J1885; J2001; J2250; J2405; J2704; J2710; J3010; J7030 ×3; U0002 ×2

== ENCOUNTER → 2023-08-15 | Day surgery (SDC) | payer BC ==
[~2023-08-15] MED LIST changes: +ACETAMINOPHEN 1000 MG/100 ML 100 ML IV ONE; +BIOTIN1000 MCG; +BUPIVACAINE HCL 0.5% INJ 30 ML VIAL INJ ONE; +CEFAZOLIN SODIUM 2 GM ONE; +DEXAMETHASONE SOD PHOS INJ 4 MG/ML SDV ONE; +EPHEDRINE SULFATE INJ 50 MG/ML VIAL ONE; +ESTRADIOL0.5 MG PO; +FAMOTIDINE20 MG PO; +FENTANYL CITRATE/PF 100MCG/2 ML INJ ONE; +GABAPENTIN100 MG PO; +HYDROCODONE/APAP 7.5MG-325MG 1 EA TAB ONE; +HYDROCODONE/APAP 7.5MG-325MG 1 EA TAB PO ONE; +KETOROLAC TROMETHAMINE 30 MG/ML VIAL ONE; +LACTATED RINGER'S 1,000 ML ONE; +LIDOCAINE 1% W/EPINEPHRINE 20 ML VIAL ONE; +LIDOCAINE HCL 2% LOCAL INJ 5 ML SDV VIAL INJ ONE; +MODAFINIL100 MG PO; +NEXIUM40 MG PO; +ONDANSETRON HCL INJ 2MG/ML 2ML 2 MG/ML VIAL ONE; +PROBIOTIC & AC1 EACH; +PROPOFOL IV EMULSION 10 MG/ML 20 ML VIAL ONE; +SEVOFLURANE INHAL SOLN 250 ML PEN BTL ONE; +TRICOR145 MG PO; +ZYRTEC10 M3 PO
[2023-08-15 06:31] LABS: BASOPHILS # (AUTO) 0.1 (0.0-0.1); BASOPHILS % 1.5 % (0.0-1.0); EOSINOPHILS # (AUTO) 0.3 (0.0-0.4); EOSINOPHILS % 5.8 % (0.0-6.0); HEMOGLOBIN 11.4 g/dL (12.0-16.0); LYMPHOCYTES % 37.8 % (18.0-39.1); MEAN CORPUSCULAR HGB CONC 32.6 g/dL (31-35); MEAN CORPUSCULAR VOLUME 92.1 fL (81-99); MONOCYTES # (AUTO) 0.6 (0.2-0.8); MONOCYTES % 11.9 % (4.4-11.3); NEUTROPHILS # (AUTO) 2.2 (2.1-6.9); NEUTROPHILS % 42.8 % (38.7-80.0); PLATELET COUNT 316 x10e3/uL (140-360); RED CELL DISTRIBUTION WIDTH 12.5 % (11.7-14.4); WHITE BLOOD COUNT 5.21 x10e3/uL (4.8-10.8)
[2023-08-15 06:54] LABS: ANION GAP 13.9 mmol/L (8-16); CALCIUM 9.7 mg/dL (8.4-10.2); CREATININE, SERUM 0.97 mg/dL (0.57-1.11); POTASSIUM 3.9 mmol/L (3.5-5.1)
[2023-08-15 08:13] VITALS: TEMP 98.2
[2023-08-15 09:15] VITALS: BP 130/60; PULSE 71; RESP 16; O2SAT 97
== END | disposition home or self-care (01) ==
LOC: OR 05:45
PROVIDERS: ATTEND Orthopaedic Surgery
DX: S83.231A Complex tear of medial meniscus, current injury, right knee, initial encounter (principal); S83.281A Other tear of lateral meniscus, current injury, right knee, initial encounter; M22.41 Chondromalacia patellae, right knee; M67.51 Plica syndrome, right knee; M17.11 Unilateral primary osteoarthritis, right knee; E78.5 Hyperlipidemia, unspecified; R00.1 Bradycardia, unspecified; K21.9 Gastro-esophageal reflux disease without esophagitis; F41.9 Anxiety disorder, unspecified; R68.84 Jaw pain; X58.XXXA Exposure to other specified factors, initial encounter; Z88.8 Allergy status to other drugs, medicaments and biological substances; Z91.040 Latex allergy status; Z91.048 Other nonmedicinal substance allergy status; Z01.810 Encounter for preprocedural cardiovascular examination; Z79.899 Other long term (current) drug therapy; Z79.1 Long term (current) use of non-steroidal anti-inflammatories (NSAID); Z82.61 Family history of arthritis
CPT/HCPCS: 29881; 36415; 80048; 85025; 93005; C1713 ×2; C1729; J0131; J1100; J1885; J2001; J2405; J2704; J3010; J7121

== ENCOUNTER 2024-01-06 11:03 | Outpatient (RCR) | payer BC ==
[~2024-01-06 11:03] MED LIST changes: -ACETAMINOPHEN 1000 MG/100 ML 100 ML IV ONE; -BUPIVACAINE HCL 0.5% INJ 30 ML VIAL INJ ONE; -CEFAZOLIN SODIUM 2 GM ONE; -DEXAMETHASONE SOD PHOS INJ 4 MG/ML SDV ONE; -EPHEDRINE SULFATE INJ 50 MG/ML VIAL ONE; -FENTANYL CITRATE/PF 100MCG/2 ML INJ ONE; -HYDROCODONE/APAP 7.5MG-325MG 1 EA TAB ONE; -HYDROCODONE/APAP 7.5MG-325MG 1 EA TAB PO ONE; -KETOROLAC TROMETHAMINE 30 MG/ML VIAL ONE; -LACTATED RINGER'S 1,000 ML ONE; -LIDOCAINE 1% W/EPINEPHRINE 20 ML VIAL ONE; -LIDOCAINE HCL 2% LOCAL INJ 5 ML SDV VIAL INJ ONE; -ONDANSETRON HCL INJ 2MG/ML 2ML 2 MG/ML VIAL ONE; -PROPOFOL IV EMULSION 10 MG/ML 20 ML VIAL ONE; -SEVOFLURANE INHAL SOLN 250 ML PEN BTL ONE
== END 2024-01-20 ==
LOC: OT 11:03
PROVIDERS: ATTEND Family Medicine
DX: G56.22 Lesion of ulnar nerve, left upper limb (principal); M79.642 Pain in left hand; R20.9 Unspecified disturbances of skin sensation